=== PATIENT | male | born 1990 ===

== ENCOUNTER 2025-08-04 15:47 | Outpatient (CLI) | payer OTHER, SELFPAY ==
--- NOTE | ~2025-08-04 | XR_ITS ---
XR lumbar spine min 4V Indication: Sciatica, left side Comparison: None Findings: The vertebral heights are intact. No fracture or subluxation. The disc heights are intact. Soft tissues unremarkable Impression: No acute abnormality. Reviewed, dictated and finalized at location P. Impression: No acute abnormality.
== END 2025-08-04 15:48 | disposition home or self-care (01) ==
PROVIDERS: PCP Hospitalist; Visit Provider Hospitalist
DX: M54.32 Sciatica, left side (principal)
CPT/HCPCS: 72110